=== PATIENT | female | born 1985 | race Caucasian/White ===

== ENCOUNTER 2018-08-30 09:59 | Emergency (ER) | payer SELFPAY ==
[~2018-08-30] VITALS: Ht 162.6 cm; Wt 104.5 kg
[2018-08-30 10:01] VITALS: BP 176/51
[2018-08-30] MEDS ORDERED: CLIN150C2 PO (11:01)
[2018-08-30] MEDS ORDERED: ONDA4TAB6 PO (11:01)
[2018-08-30] MEDS ORDERED: METH4TAB3 PO (11:06)
== END 2018-08-30 11:37 | disposition home or self-care (01) ==
LOC: ER 10:00
DX: S02.5XXA Fracture of tooth (traumatic), initial encounter for closed fracture (principal); K29.00 Acute gastritis without bleeding; F15.90 Other stimulant use, unspecified, uncomplicated; Z79.899 Other long term (current) drug therapy; X58.XXXA Exposure to other specified factors, initial encounter; Y93.89 Activity, other specified; Y92.89 Other specified places as the place of occurrence of the external cause; Y99.8 Other external cause status
CPT/HCPCS: 99283

== ENCOUNTER 2019-04-14 08:15 | Emergency (ER) | payer SELFPAY ==
[~2019-04-14] VITALS: Ht 162.6 cm; Wt 64.4 kg
[~2019-04-14 08:15] MED LIST: METH4TAB3 PO; ONDA4TAB6 PO
[2019-04-14 08:18] VITALS: BP 118/75
[2019-04-14] MEDS ORDERED: DOXY100C43 PO (11:07)
[2019-04-14] MEDS ORDERED: IBUP-1984 PO (11:07)
== END 2019-04-14 11:34 | disposition home or self-care (01) ==
LOC: ER 08:16
DX: S92.322A Displaced fracture of second metatarsal bone, left foot, initial encounter for closed fracture (principal); S92.332A Displaced fracture of third metatarsal bone, left foot, initial encounter for closed fracture; L03.116 Cellulitis of left lower limb; W01.0XXA Fall on same level from slipping, tripping and stumbling without subsequent striking against object, initial encounter; Y93.89 Activity, other specified; Y92.89 Other specified places as the place of occurrence of the external cause; Y99.8 Other external cause status
CPT/HCPCS: 73630; 99283

== ENCOUNTER 2019-06-30 08:16 | Emergency (ER) | payer SELFPAY ==
[~2019-06-30] VITALS: Ht 162.6 cm; Wt 61.0 kg
[2019-06-30 08:21] VITALS: BP 119/76
[2019-06-30] MEDS ORDERED: CEPH-572 PO (09:24)
[2019-06-30] MEDS ORDERED: SULF1TAB49 PO (09:24)
== END 2019-06-30 09:43 | disposition home or self-care (01) ==
LOC: ER 08:16
DX: L02.413 Cutaneous abscess of right upper limb (principal); F15.90 Other stimulant use, unspecified, uncomplicated; Z88.0 Allergy status to penicillin; Z79.899 Other long term (current) drug therapy
CPT/HCPCS: 10060; 99283

== ENCOUNTER 2019-07-27 14:04 | Emergency (ER) | payer MEDICAID, OTHER ==
[~2019-07-27] VITALS: Ht 162.6 cm; Wt 62.4 kg
[2019-07-27 14:39] VITALS: BP 118/77
[2019-07-27 14:56] LABS: URINE HCG NEGATIVE (NEG)
== END 2019-07-27 15:45 | disposition home or self-care (01) ==
LOC: ER 14:04
DX: R05 Cough (principal); G43.909 Migraine, unspecified, not intractable, without status migrainosus; Z59.0 Homelessness; Z88.0 Allergy status to penicillin
CPT/HCPCS: 81025; 99283

== ENCOUNTER 2019-08-18 13:31 | Emergency (ER) | payer MEDICAID, OTHER ==
[~2019-08-18] VITALS: Ht 162.6 cm; Wt 65.0 kg
[2019-08-18 13:38] VITALS: BP 111/63
[2019-08-18] MEDS ORDERED: ipratropium/albuterol 3ml nebule NEB ONE (14:35)
[2019-08-18] MEDS ORDERED: ALBU6.7H9 INH (14:38)
[2019-08-18] MEDS ORDERED: PRED20TA PO (14:38)
--- NOTE | 2019-08-18 14:41 | NUR ---
PAGED RT FOR SVN TX
== END 2019-08-18 15:08 | disposition home or self-care (01) ==
LOC: ER 13:31
DX: J45.909 Unspecified asthma, uncomplicated (principal); J06.9 Acute upper respiratory infection, unspecified; F17.200 Nicotine dependence, unspecified, uncomplicated; Z59.0 Homelessness; Z88.0 Allergy status to penicillin; Z79.899 Other long term (current) drug therapy
CPT/HCPCS: 94640; 94760; 99283